=== PATIENT | male | born 1950 | race Caucasian/White ===

== ENCOUNTER 2017-06-03 17:22 | Observation (INO) ==
--- NOTE | 2017-06-03 17:32 | Emergency Department Note ---
Disposition Clinical Impression: Chest pain Qualifiers: Chest pain type: unspecified Qualified Code(s): R07.9 - Chest pain, unspecified Disposition: Admitted As Inpatient Condition: Fair Forms: ED Satisfaction Letter Time of Disposition: 18:08 Chest Pain HPI - General Chief Complaint: ED Chest Pain Stated Complaint: chest pain Time Seen by Provider: 06/03/17 17:26 Source: patient, EMS Mode of arrival: EMS Limitations: no limitations Vital Signs Reviewed: Yes Nursing Notes Reviewed: Yes - History of Present Illness HPI Narrative: With a known history of type 1 diabetes, hypertension, COPD presents with chest discomfort that started today. It radiates to his left upper extremity. He denies other associated symptoms today but does admit to occasional exertional dyspnea. He has no previous history of coronary artery disease. He underwent a cardiac catheterization several years ago at the [facility] without stent deployment. Blood sugars have been controlled. He was sent from the [place] urgent care for further evaluation Pt complaint: chest pain Onset (ago): hour(s) Duration: constant Onset: during rest Pain Location: substernal Quality: aching Pain Radiation: LUE Treatments prior to arrival chest pain: aspirin, other - Related Data On Oral Contraceptives: No Allergies Allergy/AdvReac Type Severity Reaction Status Date / Time sertraline [From Zoloft] AdvReac Irritable Verified 08/13/15 11:03 sulfamethoxazole AdvReac Irritable Verified 08/13/15 11:03 [From Bactrim] trimethoprim [From Bactrim] AdvReac Irritable Verified 08/13/15 11:03 All systems ED: reviewed and negative except as stated. Constitutional: Reports: as per HPI Eyes: Reports: as per HPI ENT ED: Reports: as per HPI Cardiovascular: Reports: chest pain, dyspnea on exertion Respiratory: Reports: dyspnea Gastrointestinal: Reports: as per HPI Genitourinary: Reports: as per HPI Musculoskeletal: Reports: other (Left upper extremity pain) Integumentary: Reports: as per HPI Neurological: Reports: as per HPI Psychiatric: Reports: as per HPI Endocrine: Reports: as per HPI Hematological/Lymphatic: Reports: as per HPI Allergic/Immunologic: Reports: as per HPI Chest Pain PMH - Past Medical History Medical history: Reports: COPD, hyperlipidemia, hypertension Surgical history: Reports: other Psychiatric history: Reports: no psych history - Social History Smoking Status: Never smoker Alcohol use: Reports: none Drug use: Reports: none Physical Exam - General Limitations: no limitations General appearance: alert - Head Head exam: atraumatic - Eye Eye exam: Present: normal appearance - ENT ENT exam: normal exam - Neck Neck exam: Present: normal inspection, full ROM - Chest Chest inspection: Present: normal inspection, symmetric chest wall rise - Respiratory Respiratory exam: Present: normal lung sounds bilaterally - Cardiovascular Cardiovascular exam: Present: regular rate, normal rhythm, normal heart sounds - Rectal Exam Rectal exam: Present: deferred - Extremities Exam Extremities exam: Present: normal inspection - Neurological Exam Neurological exam: Present: alert, oriented X3, CN II-XII intact - Psychiatric Psychiatric exam: Present: normal affect, normal mood - Skin Skin exam: Present: warm, dry, intact Course Course Narrative: Patient presents as a transfer from the [facility] with chest pain. He was not given nitroglycerin because he takes Viagra. He appears in no acute distress on exam. Cardiac workup including EKG, chest x-ray, labs initiated. - Reevaluation(s) Reevaluation #1: I will request admission to the medicine service. Vital Signs Temperature 98.2 F 06/03/17 17:23 Pulse Rate 84 06/03/17 17:23 Respiratory Rate 16 06/03/17 17:23 Blood Pressure 149/90 06/03/17 17:23 O2 Sat by Pulse Oximetry 95 06/03/17 17:23 Temperature 98.2 F 06/03/17 17:23 Pulse Rate 84 06/03/17 17:23 Respiratory Rate 16 06/03/17 17:23 Blood Pressure 149/90 06/03/17 17:23 O2 Sat by Pulse Oximetry 95 06/03/17 17:23 Oxygen Delivery Oxygen Delivery Room Air Chest Pain - Medical Records Medical records reviewed: Yes I reviewed the patient's medical records. Records sent from the [place] - Lab Data Lab results reviewed: Yes I reviewed the patient's lab results. Result diagrams: 06/03/17 17:40 06/03/17 17:40 Lab Results 06/03/17 06/03/17 06/03/17 Range/Units 17:40 17:40 17:40 WBC 8.7 (4.3-11.1) K/mcL RBC 4.36 (4.19-5.50) M/mcL Hgb 12.7 L (12.9-16.9) g/dL Hct 37.7 (37.5-50.1) % MCV 86.5 (83.0-100.0) fL MCH 29.1 (28.0-33.3) pg MCHC 33.7 (31.6-35.5) g/dL RDW 11.9 (11.5-14.5) % Plt Count 257 (140-400) K/mcL MPV 9.2 L (9.4-12.4) fL Immature Gran % 0.3 (0-4) % Seg Neutrophils % 73.7 % Lymphocytes % 16.1 % Monocytes % 9.1 % Eosinophils % 0.3 % Basophils % 0.5 % Neutrophils # 6.4 (1.6-8.9) K/mcL Lymphocytes # 1.4 (0.6-4.6) K/mcL Monocytes # 0.8 (0.0-1.3) K/mcL Eosinophils # 0.0 (0.0-0.6) K/mcL Basophils # 0.0 (0.0-0.2) K/mcL Immature Plt Fraction 1.8 (1.1-6.1) % PT 10.5 (9.4-12.1) Seconds INR 1.0 Sodium 134 L (136-145) mEq/L Potassium 4.5 (3.5-4.5) mEq/L Chloride 101 (98-109) mEq/L Carbon Dioxide 25 (19-29) mEq/L BUN 13 (8-26) mg/dL Creatinine 1.32 H (0.72-1.25) mg/dL Est GFR ( Amer) > 60 (> 60) Est GFR (Non-Af Amer) 54 L (> 60) BUN/Creatinine Ratio 10 (6-26) Glucose 130 H (70-99) mg/dL Calculated Osmolality 280 (280-300) Calcium 9.5 (8.6-10.8) mg/dL - Radiology Data Radiology results reviewed: Yes I reviewed the patient's radiology results. - EKG Data EKG attestation: Yes I reviewed and interpreted this EKG. EKG results narrative: Normal sinus rhythm rate 67 VA 169 QRS 95 QT/QTC 363/78. No acute ST segment elevation. Heart Score - Score History: Moderately Suspicious EKG: Normal Age: Greater than 65 Risk Factors: 1-2 risk factors Troponin: Less than normal limit HEART Score Total: 4
[2017-06-03 17:47] LABS: Basophils % 0.5 %; Eosinophils % 0.3 %; Hematocrit 37.7 % (37.5-50.1); Hemoglobin 12.7 g/dL (12.9-16.9); Immature Granulocytes % 0.3 % (0-4); Immature Platelets 1.8 % (1.1-6.1); Lymphocytes # 1.4 K/mcL (0.6-4.6); Lymphocytes % 16.1 %; Mean Corpuscular HGB Conc 33.7 g/dL (31.6-35.5); Mean Corpuscular Hemoglobin 29.1 pg (28.0-33.3); Mean Corpuscular Volume 86.5 fL (83.0-100.0); Mean Platelet Volume 9.2 fL (9.4-12.4); Monocytes # 0.8 K/mcL (0.0-1.3); Monocytes % 9.1 %; Neutrophils # 6.4 K/mcL (1.6-8.9); Platelet Count 257 K/mcL (140-400); Red Blood Count 4.36 M/mcL (4.19-5.50); Red Cell Distribution Width 11.9 % (11.5-14.5); Segmented Neutrophils % 73.7 %
[2017-06-03 17:53] LABS: Prothrombin Time 10.5 Seconds (9.4-12.1)
[2017-06-03 18:04] LABS: BUN/Creatinine Ratio 10 (6-26); Blood Urea Nitrogen 13 mg/dL (8-26); Calcium 9.5 mg/dL (8.6-10.8); Carbon Dioxide 25 mEq/L (19-29); Chloride 101 mEq/L (98-109); Glucose 130 mg/dL (70-99); Osmolality,Calculated 280 (280-300); Potassium 4.5 mEq/L (3.5-4.5); Sodium 134 mEq/L (136-145); eGFR For African Americans > 60 (> 60); eGFR For Non-African Americans 54 (> 60)
[2017-06-03] MEDS ORDERED: *HR* Morphine 2 MG/ML SYRINGE IVP ONE (18:10)
[2017-06-03] MEDS ORDERED: Acetaminophen 325 MG TABLET PO PRN (19:20)
[2017-06-03] MEDS ORDERED: Naloxone 0.4 MG/ML INJ IVP PRN (19:20)
[2017-06-03] MEDS ORDERED: *HR* Morphine 2 MG/ML SYRINGE IVP PRN ×2 (19:56→23:14)
[2017-06-03] MEDS ORDERED: Aspirin 325 MG TABLET PO ONE (19:56)
[2017-06-03] MEDS ORDERED: Dextrose Gel 15 GM PO PRN ×2 (19:59)
[2017-06-03] MEDS ORDERED: *HR* Dextrose 50 % in Water (Syg) 50 ML SYRINGE IVP PRN (19:59)
[2017-06-03] MEDS ORDERED: D5% in Water 1,000 ML IVC PRN (19:59)
--- NOTE | 2017-06-03 20:16 | Internal Med History&Physical ---
<Catherine Rebolledo M - Last Filed: 06/03/17 20:34> Date of Encounter: 06/03/17 Time of Encounter: 20:04 Assessment and Plan (1) Chest pain Current visit: Yes Status: Acute Patient presents with constant aching pain to left chest and left arm, somewhat relieved by morphine. Patient cannot take nitro because he had viagra today. He has risk factors of hypertension, diabetes. EKG with no ischemic changes. Troponin negative at 0.00. 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 NPO after midnight except for meds for morning testing. Qualifiers: Chest pain type: unspecified Qualified Code(s): R07.9 - Chest pain, unspecified (2) Type 2 diabetes mellitus Current visit: Yes Status: Acute Check Hgb A1c. Patient is NPO after midnight for AM testing. Check blood sugars ACHS and Q6hr while NPO Give half normal long acting dose tonight and tomorrow morning with 8u tonight and 21u tomorrow morning (home dose is 42u Q AM and 16u qPM) Consider giving other half of long acting dose after he completes testing and is taking PO again tomorrow. Sliding scale correction dose ACHS and Q6hr while NPO. Hypoglycemic protocol. 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 Continue home doses of oxycodone. Qualifiers: Chronic pain type: other chronic pain Qualified Code(s): G89.29 - Other chronic pain (4) Kidney insufficiency Current visit: Yes Status: Acute Creatinine of 1.32, with no baseline available for comparison. Patient denies any kidney problems. [facility] mentions renal complications of diabetes. Unclear if this acute or chronic, but likely chronic. Check chemistry with morning labs. (5) Hypertension Current visit: Yes Status: Acute Blood pressure has been fair since arrival. Continue home dose of lisinopril. Qualifiers: Hypertension type: essential hypertension Qualified Code(s): I10 - Essential (primary) hypertension (6) DVT prophylaxis Current visit: Yes Status: Acute anti-embolic stockings heparin TID Internal Medicine - H&P: HPI Chief complaint: chest pain Admitted From: Emergency Dept Plans for Post Hospital Care: Home History of present illness: Mr. Russell is a 67 year old male with hypertension, diabetes, COPD, hyperlipide presents emergency department today from the [place] urgent care with complaints of chest pain. Patient reports that he had sudden onset of left- sided chest pain radiating to his left upper arm starting at 11 AM this morning. He reports the pain has been constant aching, with intermittent sharp pains that seems to worsen with movement of his left arm as well as activity. He reports pain was somewhat relieved with morphine given at urgent care and in the ER. He denies any lightheadedness, headache, palpitations, shortness of breath, nausea, vomiting, abdominal pain, fever, chills or sweats. EKG showed normal sinus rhythm with no ST elevations. Troponin was negative at 0.00. Creatinine was elevated at 1.3 to, but we have no baseline for comparison. Chest x-ray showed no acute cardiopulmonary process. On exam, patient alert and oriented, in no acute distress. Heart has regular rate and rhythm, lungs are clear bilaterally to auscultation. No peripheral edema. Past Med Surg Social Fam HX - Past Medical History Medical history: COPD, hyperlipidemia, hypertension Psychiatric history: no psych history - Past Surgical History Surgical History: cholecystectomy, herniorrhaphy, other - Social History Smoking Status: Never smoker Smokeless Tobacco Status: No Alcohol use: none Drug use: none - Family History Mother Living Status: Still Living Hx Family Medical Disorders: Yes (anemia) Father Living Status: Still Living Hx Family Cardiac Disorders: Yes Hx Family Medical Disorders: Yes (carotid endarterectomy) Internal Medicine - H&P: Meds Acetaminophen [Tylenol] 650 mg PO Q8HR PRN 06/03/17 [History] Albuterol Sulfate [Albuterol Inhaler] 2 puff IH QID 06/03/17 [History] Aspirin [Lo-Dose Aspirin EC] 81 mg PO DAILY 06/03/17 [History] Atorvastatin Calcium [Lipitor] 10 mg PO HS 06/03/17 [History] Cholecalciferol (D-3) [Vitamin D] 1,000 unit PO DAILY 06/03/17 [History] Cyanocobalamin (B-12) [Vitamin B12] 1,000 mcg PO DAILY 06/03/17 [History] Finasteride [Proscar] 5 mg PO DAILY 06/03/17 [History] Gabapentin [Neurontin] 400 mg PO TID 06/03/17 [History] Lisinopril [Zestril] 40 mg PO DAILY 06/03/17 [History] Loratadine [Allergy Relief] 10 mg PO DAILY 06/03/17 [History] Metformin HCl [Glucophage] 1,000 mg PO BID 06/03/17 [History] Omeprazole [PriLOSEC] 20 mg PO BIDAC 06/03/17 [History] Oxycodone HCl [Oxaydo] 5 mg PO Q6HR PRN 06/03/17 [History] Sildenafil Citrate [Viagra] 100 mg PO 06/03/17 [History] Tamsulosin HCl [Flomax] 0.4 mg PO HS 06/03/17 [History] hydroCHLOROthiazide [Hydrochlorothiazide] 25 mg PO DAILY 06/03/17 [History] 3 Allergy/AdvReac Type Severity Reaction Status Date / Time sertraline [From Zoloft] AdvReac Irritable Verified 08/13/15 11:03 sulfamethoxazole AdvReac Irritable Verified 08/13/15 11:03 [From Bactrim] trimethoprim [From Bactrim] AdvReac Irritable Verified 08/13/15 11:03 All Systems PM: A 10-system review of systems was performed and is negative for pertinent findings except as documented above in the HPI. - Constitutional Constitutional: no chills, no fever(s), no night sweats - EENT Eyes: no change in vision, no discharge, no pain, no photophobia Ears: no ear discharge, no ear pain, no tinnitus Nose, mouth and throat: no dysphagia, no nasal discharge, no neck pain, no sore throat - Cardiovascular Cardiovascular ROS IM: chest pain (and left arm pain), no diaphoresis, no dyspnea, no lightheadedness, no palpitations, no syncope - Respiratory Respiratory: no cough, no dyspnea, no wheezing, no excessive phlegm production - Gastrointestinal Gastrointestinal: no abdominal pain, no diarrhea, no hematemesis, no hematochezia, no melena, no nausea, no vomiting - Musculoskeletal Musculoskeletal ROS IM: numbness (chronic in feet), tingling - Integumentary Integumentary IM: no rash, no unusual bruising - Neurological Neurological ROS: no confusion, no convulsions, no focal weakness, no numbness, no tingling, no tremor(s) - Hematologic/Lymphatic Hematologic/Lymphatic: no easy bruising - Constitutional Vitals: Temp Pulse Resp BP Pulse Ox 98.2 F 67 16 146/78 98 06/03/17 17:23 06/03/17 18:17 06/03/17 18:54 06/03/17 18:54 06/03/17 18:17 General appearance: Present: A&O X 3, pleasant, no acute distress - Head Head exam: Present: atraumatic, normocephalic - Eye Eye exam: Present: PERRL, conjuntiva pink, sclera anicteric Pupils: Present: PERRL - Neck Neck exam general surgery: Present: supple, trachea midline. Absent: lymphadenopathy - Respiratory Respiratory exam: Present: CTAB. Absent: accessory muscle use, rales, rhonchi, wheezes - Cardiovascular Cardiovascular exam: Present: RRR, +S1, +S2. Absent: diastolic murmur, gallop, rubs, systolic murmur - GI/Abdominal GI/Abdominal exam: Present: normal bowel sounds, soft, no peritoneal signs. Absent: distended, tenderness - Extremities Exam Extremities exam: Present: warm, radial pulses palpable and symmetrical. Absent : calf tenderness, cyanotic, pedal edema - Neurological Exam Neurological exam: Present: CN II-XII intact, oriented X3, no focal deficits. Absent: facial droop, speech deficit - Skin Skin exam: Present: dry, intact Internal Med - H&P Results - Labs CBC & Chem 7: 06/03/17 17:40 06/03/17 17:40 Labs: All Lab Results (24 Hours) 06/03/17 06/03/17 06/03/17 Range/Units 17:40 17:40 17:40 WBC 8.7 (4.3-11.1) K/mcL RBC 4.36 (4.19-5.50) M/mcL Hgb 12.7 L (12.9-16.9) g/dL Hct 37.7 (37.5-50.1) % MCV 86.5 (83.0-100.0) fL MCH 29.1 (28.0-33.3) pg MCHC 33.7 (31.6-35.5) g/dL RDW 11.9 (11.5-14.5) % Plt Count 257 (140-400) K/mcL MPV 9.2 L (9.4-12.4) fL Immature Gran % 0.3 (0-4) % Seg Neutrophils % 73.7 % Lymphocytes % 16.1 % Monocytes % 9.1 % Eosinophils % 0.3 % Basophils % 0.5 % Neutrophils # 6.4 (1.6-8.9) K/mcL Lymphocytes # 1.4 (0.6-4.6) K/mcL Monocytes # 0.8 (0.0-1.3) K/mcL Eosinophils # 0.0 (0.0-0.6) K/mcL Basophils # 0.0 (0.0-0.2) K/mcL Immature Plt Fraction 1.8 (1.1-6.1) % PT 10.5 (9.4-12.1) Seconds INR 1.0 Sodium 134 L (136-145) mEq/L Potassium 4.5 (3.5-4.5) mEq/L Chloride 101 (98-109) mEq/L Carbon Dioxide 25 (19-29) mEq/L BUN 13 (8-26) mg/dL Creatinine 1.32 H (0.72-1.25) mg/dL Est GFR ( Amer) > 60 (> 60) Est GFR (Non-Af Amer) 54 L (> 60) BUN/Creatinine Ratio 10 (6-26) Glucose 130 H (70-99) mg/dL Calculated Osmolality 280 (280-300) Calcium 9.5 (8.6-10.8) mg/dL Troponin I (0-0.03) ng/mL 06/03/17 Range/Units 17:40 WBC (4.3-11.1) K/mcL RBC (4.19-5.50) M/mcL Hgb (12.9-16.9) g/dL Hct (37.5-50.1) % MCV (83.0-100.0) fL MCH (28.0-33.3) pg MCHC (31.6-35.5) g/dL RDW (11.5-14.5) % Plt Count (140-400) K/mcL MPV (9.4-12.4) fL Immature Gran % (0-4) % Seg Neutrophils % % Lymphocytes % % Monocytes % % Eosinophils % % Basophils % % Neutrophils # (1.6-8.9) K/mcL Lymphocytes # (0.6-4.6) K/mcL Monocytes # (0.0-1.3) K/mcL Eosinophils # (0.0-0.6) K/mcL Basophils # (0.0-0.2) K/mcL Immature Plt Fraction (1.1-6.1) % PT (9.4-12.1) Seconds INR Sodium (136-145) mEq/L Potassium (3.5-4.5) mEq/L Chloride (98-109) mEq/L Carbon Dioxide (19-29) mEq/L BUN (8-26) mg/dL Creatinine (0.72-1.25) mg/dL Est GFR ( Amer) (> 60) Est GFR (Non-Af Amer) (> 60) BUN/Creatinine Ratio (6-26) Glucose (70-99) mg/dL Calculated Osmolality (280-300) Calcium (8.6-10.8) mg/dL Troponin I 0.00 (0-0.03) ng/mL - Diagnostic Studies Chest x-ray Additional comments: Chest X-Ray 06/03/17 17:26 IMPRESSION: Mild elevation of right hemidiaphragm. Otherwise negative portable study. D/ / Roberta Tellez Cha, MD / Roberta Tellez Cha, MD Interpreting Provider: Roberta Telelz Cha, MD <Mani Gilliam - Last Filed: 06/03/17 23:32> Date of Encounter: 06/03/17 Internal Medicine - H&P: HPI History of present illness: Mr. Russell is a 67 year old male All Systems PM: A 10-system review of systems was performed and is negative for pertinent findings except as documented above in the HPI. - Constitutional Vitals: Temp Pulse Resp BP Pulse Ox 97.4 F L 86 16 142/81 95 06/03/17 22:29 06/03/17 22:29 06/03/17 22:29 06/03/17 22:29 06/03/17 22:29 Internal Med - H&P Results - Labs CBC & Chem 7: 06/03/17 17:40 06/03/17 17:40 - Attending Attestation I independently obtained history and examined this patient and my medical decision-making was reviewed with the nurse practitioner, Catherine Rebolledo. I agree with the documented findings, disposition and treatment plan as described. My findings are summarized below: Patient presents with chest pain. He has multiple risk factors. On exam he is in no acute distress. Heart is regular, lungs are clear. EKG reviewed by myself shows normal sinus rhythm 76 bpm no ischemic changes Plan rule out ACS, stress test and echocardiogram in the morning
[2017-06-03] MEDS ORDERED: *HR* OxyCODONE Immed Rel 5 MG TABLET PO PRN ×2 (20:31→23:58)
[2017-06-03 20:38] LABS: Hemoglobin A1C 6.8 %
[2017-06-03] MEDS ORDERED: Insulin LISPRO 300 UNITS/3 ML VIAL SQ SCH (21:00)
[2017-06-03] MEDS ORDERED: Insulin DETEMIR 100 UNIT/ML X5UNITS SQ SCH (21:00)
[2017-06-03] MEDS: Gabapentin 400 MG CAPSULE PO SCH (21:40)
[2017-06-03] MEDS: Ipratropium 1 PUFF INHALER IH SCH (22:35)
[2017-06-03] MEDS ORDERED: *HR* OxyCODONE Immed Rel 5 MG TABLET PO ONE (23:57)
[2017-06-04] MEDS: Insulin LISPRO 300 UNITS/3 ML VIAL SQ SCH ×3 (00:28→12:30)
[2017-06-04 00:39] LABS: Basophils % 0.5 %; Eosinophils # 0.1 K/mcL (0.0-0.6); Eosinophils % 1.2 %; Hematocrit 38.3 % (37.5-50.1); Hemoglobin 12.9 g/dL (12.9-16.9); Immature Granulocytes % 0.3 % (0-4); Lymphocytes # 2.1 K/mcL (0.6-4.6); Lymphocytes % 27.9 %; Mean Corpuscular HGB Conc 33.7 g/dL (31.6-35.5); Mean Corpuscular Hemoglobin 29.7 pg (28.0-33.3); Mean Platelet Volume 9.5 fL (9.4-12.4); Monocytes # 0.8 K/mcL (0.0-1.3); Monocytes % 10.3 %; Neutrophils # 4.4 K/mcL (1.6-8.9); Platelet Count 241 K/mcL (140-400); Red Blood Count 4.35 M/mcL (4.19-5.50); Red Cell Distribution Width 12.2 % (11.5-14.5); Segmented Neutrophils % 59.8 %
[2017-06-04 00:54] LABS: BUN/Creatinine Ratio 10 (6-26); Blood Urea Nitrogen 13 mg/dL (8-26); Calcium 9.5 mg/dL (8.6-10.8); Carbon Dioxide 28 mEq/L (19-29); Chloride 97 mEq/L (98-109); Chol/HDL Ratio 3.4 (0-4.9); Cholesterol 126 mg/dL (< 200); Glucose 292 mg/dL (70-99); HDL Cholesterol 37 mg/dL (40-59); LDL Cholesterol,Calculated 54 mg/dL (0-99); Osmolality,Calculated 287 (280-300); Potassium 4.3 mEq/L (3.5-4.5); Sodium 133 mEq/L (136-145); Triglycerides 173 mg/dL (< 150); eGFR For African Americans > 60 (> 60); eGFR For Non-African Americans 53 (> 60)
[2017-06-04] MEDS ORDERED: *HR* Heparin 5,000 UNIT/ML VIAL SQ SCH (06:00)
[2017-06-04] MEDS: *HR* Morphine 2 MG/ML SYRINGE IVP PRN ×2 (06:01→13:20)
[2017-06-04] MEDS ORDERED: Regadenoson 0.4 MG/5 ML SYRINGE IVP ONE (06:16)
[2017-06-04] MEDS: Ipratropium 1 PUFF INHALER IH SCH (07:47)
[2017-06-04] MEDS ORDERED: hydroCHLOROthiazide 25 MG TABLET PO SCH (09:00)
[2017-06-04] MEDS ORDERED: Lisinopril 20 MG TABLET PO SCH (09:00)
[2017-06-04] MEDS ORDERED: Finasteride 5 MG TABLET PO SCH (09:00)
[2017-06-04] MEDS ORDERED: Aspirin Enteric Coated 81 MG Tablet PO SCH (09:00)
[2017-06-04] MEDS ORDERED: Insulin DETEMIR 100 UNIT/ML X5UNITS SQ SCH (09:00)
[2017-06-04] MEDS ORDERED: Loratadine 10 MG TABLET PO SCH (09:00)
[2017-06-04] MEDS: Gabapentin 400 MG CAPSULE PO SCH (11:28)
[2017-06-04 12:06] VITALS: BP 144/87
--- NOTE | 2017-06-04 12:54 | Discharge Summary ---
Date of Encounter: 06/04/17 Time of Encounter: 12:30 - Discharge Diagnosis (1) Chest pain Priority: Primary Status: Acute Comments: Patient denied chest pain on the discharge but did endorse left upper arm pain that he attributed to his peripheral IV. He denied shortness of breath above his norm. Chest x-ray negative. Troponins negative 3. Stress test negative. Ejection fraction 63%. Echocardiogram still pending at time of discharge, can follow up with primary care provider [facility] the [facility] for results. ACS ruled out. (2) Type 2 diabetes mellitus Priority: Secondary Status: Chronic Comments: Controlled with an A1c of 6.8%. Continue follow-up outpatient. 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 Continue home oxycodone and follow-up outpatient. Qualifiers: Chronic pain type: other chronic pain Qualified Code(s): G89.29 - Other chronic pain (4) Kidney insufficiency Priority: Primary Status: Acute Comments: Remained stable since admission. No prior lab results available to determine chronicity. Follow-up outpatient (5) Hypertension Priority: Secondary Status: Chronic Comments: Borderline hypertensive at times, otherwise controlled. Recommend daily blood pressure checks at home, keeping a log, and following up outpatient. Qualifiers: Hypertension type: essential hypertension Qualified Code(s): I10 - Essential (primary) hypertension (6) DVT prophylaxis Priority: Primary Status: Acute Comments: Subcutaneous heparin while admitted - Discharge Medications Home Medications: Albuterol Sulfate [Albuterol Inhaler] 2 puff IH QID PRN 06/03/17 [History] Aspirin [Lo-Dose Aspirin EC] 81 mg PO DAILY 06/03/17 [History] Atorvastatin Calcium [Lipitor] 5 mg PO HS 06/03/17 [History] Cholecalciferol (D-3) [Vitamin D] 1,000 unit PO DAILY 06/03/17 [History] Cyanocobalamin (B-12) [Vitamin B12] 1,000 mcg PO DAILY 06/03/17 [History] Finasteride [Proscar] 5 mg PO DAILY 06/03/17 [History] Gabapentin [Neurontin] 800 mg PO TID 06/03/17 [History] Lisinopril [Zestril] 20 mg PO DAILY 06/03/17 [History] Loratadine [Allergy Relief] 10 mg PO DAILY 06/03/17 [History] Metformin HCl [Glucophage] 1,000 mg PO BID 06/03/17 [History] Omeprazole [PriLOSEC] 20 mg PO BID 06/03/17 [History] Oxycodone HCl [Oxaydo] 10 mg PO Q6HR PRN 06/03/17 [History] Sildenafil Citrate [Viagra] 100 mg PO AD PRN 06/03/17 [History] Tamsulosin HCl [Flomax] 0.4 mg PO HS 06/03/17 [History] hydroCHLOROthiazide [Hydrochlorothiazide] 25 mg PO DAILY 06/03/17 [History] Ipratropium [Atrovent Inhaler] 1 puff IH BID 06/04/17 [History] Allergies/Adverse Reactions: 3 Allergy/AdvReac Type Severity Reaction Status Date / Time sertraline [From Zoloft] AdvReac Irritable Verified 08/13/15 11:03 sulfamethoxazole AdvReac Irritable Verified 08/13/15 11:03 [From Bactrim] trimethoprim [From Bactrim] AdvReac Irritable Verified 08/13/15 11:03 Procedures/tests Complete & Pending: Procedures Performed prior 72 hours Category Date Time Status NM olamide perf SPECT multi [NM] Routine Exams 06/03/17 19:58 Taken EV echocardiogram Routine Y 06/03/17 19:57 Ordered SP pharm nuclear stress Routine Y 06/04/17 07:10 Completed Date of admission: 06/03/17 18:37 [facility] Discharging clinician: Lucretia Sevilla Anticipated date of discharge: 06/04/17 (must get Echo prior to DC- [facility]up [facility] for results) - Patient Status Disposition: Home, Self-Care Condition: Fair Functional capacity at discharge: independent ambulation Overall status at discharge: patient is back to baseline - Discharge Instructions Instructions: Chest Pain (DC) Follow Up With: [facility] [Primary Care Provider] - Additional Instructions: Follow-up with primary care provider within one to 2 weeks to obtain echocardiogram results - Diet and Activity Activity: increase activity as tolerated Diet: diabetic diet, low fat, low cholesterol, low salt diet Hospital course: Mr. Russell is a 67 year old male with past medical history of COPD, hyperlipidemia, hypertension, diabetes. Patient presented to [facility] chief complaint of chest pain. Patient stating he had sudden onset of left -sided chest pain radiating to his left upper arm that started on the morning of presentation. Patient stated the pain was constant and aching with intermittent sharp pains that seem to worsen with movement of his left arm as well as with activity. Patient stating the pain was somewhat relieved with morphine given at the urgent care and in the emergency department. He denied lightheadedness, headache, palpitations, shortness of breath, nausea vomiting abdominal pain, fever. No ischemic changes noted on EKG. Chest x-ray unremarkable. Patient was admitted to the hospitalist service for further evaluation and management. Troponins negative 3. Patient had a nuclear stress test that was negative for ischemia or infarct and revealed an ejection fraction of 63%. Acute coronary syndrome ruled out. Patient denied chest pain on day of discharge but he continued to endorse left upper arm pain that he attributed to his peripheral IV. He denied shortness of breath throughout this admission. The results of his echocardiogram are pending at time of discharge, he can follow up outpatient with the [facility] for the results. Normal ejection fraction noted on stress test and he was euvolemic on examination during this admission. He was discharged home in stable condition with close outpatient follow-up recommended. ITS Impressions Chest X-Ray 06/03/17 17:26 IMPRESSION: Mild elevation of right hemidiaphragm. Otherwise negative portable study. D/ / Roberta Tellez Cha, MD / Roberta Tellez Cha, MD Interpreting Provider: Roberta Tellez Cha, MD Regadenosen nuclear stress impression: Pharmacologic stress ECG is negative for ischemia at the level of heart rate achieved. Gated ejection fraction was 63%. Small size, mild intensity, primarily fixed perfusion defects involving the basal inferior septum and apical lateral/apex. Wall motion is normal. These findings are consistent with artifact. Perfusion imaging was negative for ischemia or infarct. - Time Spent with Patient Total time spent providing and/or coordinating discharge services: - Constitutional Vitals: Temp Pulse Resp BP Pulse Ox 97.9 F 66 15 144/87 99 06/04/17 12:05 06/04/17 12:05 06/04/17 12:05 06/04/17 12:05 06/04/17 12:05 General appearance: Present: A&O X 3, pleasant, no acute distress, answers questions appropriately - Head Head exam: Present: atraumatic, normocephalic - Eye Eye exam: Present: PERRL, conjuntiva pink, sclera anicteric Pupils: Present: PERRL - Neck Neck exam general surgery: Present: supple, trachea midline. Absent: lymphadenopathy - Respiratory Respiratory exam: Present: CTAB. Absent: accessory muscle use, rales, respiratory distress, rhonchi, wheezes - Cardiovascular Cardiovascular exam: Present: RRR, +S1, +S2. Absent: diastolic murmur, gallop, rubs, systolic murmur - GI/Abdominal GI/Abdominal exam: Present: normal bowel sounds, soft, no peritoneal signs. Absent: distended, tenderness - Extremities Exam Extremities exam: Present: warm, radial pulses palpable and symmetrical. Absent : calf tenderness, cyanotic, pedal edema - Expanded Upper Extremities Exam General: Present: normal inspection Shoulder exam: Present: normal inspection. Absent: swelling, tenderness Upper Arm exam: Present: normal inspection, tenderness. Absent: swelling Vascular exam: Present: normal capillary refill. Absent: vascular compromise - Neurological Exam Neurological exam: Present: alert, CN II-XII intact, normal gait, oriented X3, no focal deficits, strengths equal and symetr throughout. Absent: pronater drift, facial droop, speech deficit - Skin Skin exam: Present: dry, intact, normal color, warm
--- NOTE | 2017-06-05 08:35 | Nuclear Medicine Stress Report ---
Regadenoson Nuclear Stress Name: Oniel Russell Date of Study: 06/04/2017 Date: 1950 Ht: 70.0 in Medical Record#: [id number] Age: 67 Wt: 194.0 lb Gender: Male Order #: [id number] Location: [facility] Room: [facility] Supervising Provider: Nuzhat Alvarez CNP Reading Physician: Tayo Ortiz DO, FAC, [facility] Ordering Physician: Lucretia Sevilla CNP Primary Care Physician: [facility] Stress Technologist: Mita Cooper [employer], CCT Air Carrier Inspector: Irena Tellez Indications: Chest Pain Impression: Pharmacologic stress ECG is negative for ischemia at level of heart rate achieved. Gated EF = 63%. Small sized, mild intensity, primarily fixed perfusion defects involving the basal inferoseptum and apical lateral/apex. Wall motion is normal. These findings are consistent with artifact. Perfusion imaging was negative for ischemia or infarct. History: Hypertension Diabetes Stress Test Summary: Stress Test Type: Pharmacologic Regadenoson 0.4mg/5ml given IV Baseline Information: Initial Heart Rate: 70 Blood Pressure: 138/78 Stress Information: Test Terminated Due to (primary): As per protocol Maximum Blood Pressure: 118/80 Maximum Heart Rate: 107 Percent Maximum Heart Rate Achieved: 70 Double Product: 10064 METS Reached: 1 Symptoms: Shortness of breath, No chest symptoms Nuclear Summary: SPECT myocardial perfusion imaging using Tc99m Sestamibi given intravenously was performed at rest and following cardiac stress testing. The resting images were obtained following initial dose of 10.2 mCi. Following stress an additional dose of 35.8 mCi was given at peak exercise or 30 seconds post regadenoson infusion. Medication Given: Time Medication Dose Units Route Findings: Stress Note * Resting ECG demonstrated normal sinus rhythm. * No baseline arrhythmias were noted. * Patient had no chest pain during stress. * Pharmacologic stress ECG is negative for ischemia at level of heart rate achieved. * No arrhythmias were noted during stress. * Normal hemodynamic responses to pharmacologic stress. Study Quality * Study quality is average. Left Ventricle * The left ventricle is not dilated. LVEDV = 101 mL. * Normal wall motion. Inferior Perfusion Rest * The basal inferoseptal segment shows a moderate reduction in perfusion. Inferior Perfusion Stress * The basal inferoseptal segment shows a mild reduction in perfusion. Apical Perfusion Rest * The apex/apical lateral segments show a mild reduction in perfusion. Apical Perfusion Stress * The apex/apical lateral segments show a mild reduction in perfusion. TID * No evidence of transient ischemic dilatation. TID ratio = 1.07. Lung Uptake * There is no evidence of increase lung uptake. Gated EF % * Gated EF = 63%. Updated by Tayo Ortiz DO, FACMisael, GUILLERMO, ROSE on 06/04/2017 11:59:35 AM electronically signed on 06/04/2017 12:00:21 PM with status of Final
--- NOTE | 2017-06-05 17:23 | Electrocardiograph Report ---
[place] [id number] Test Date: 2017-06-03 Pat Name: Oniel Russell Department: 104 Room: 3B22 Gender: M [employer]er: KVNG : 1950 Requested By: José Miguel Maurice Order Number: [id number] Reading MD: Leatha Orona Measurements Intervals [place] Rate: 67 P: 46 [place]: 169 QRS: 27 QRSD: 95 T: 20 QT: 363 QTc: 378 Interpretive Statements SINUS RHYTHM POSSIBLY LEFT ATRIAL ENLARGEMENT Electronically Signed On 06-05-2017 17:22:00 EDT by Leatha Orona
== END 2017-06-04 16:15 | disposition home or self-care (01) ==
LOC: EMEROO 17:22 → 3BNU 18:37 → INTOOBSV 18:37 → 3BNU 19:11
PROVIDERS: ADMIT Nurse Practitioner Family; ATTEND Nurse Practitioner Family